=== PATIENT | female | born 1995 | race African-American/Black ===

== ENCOUNTER 2023-12-02 14:28 | Emergency (ER) | payer OTHER ==
[2023-12-02 14:43] VITALS: BP 120/61; PULSE 73; RESP 20; TEMP 98.2; BMI 31.2
[2023-12-02] MEDS ORDERED: ACETAMINOPHEN 325 MG TABLET (FP) ONE (15:24)
[2023-12-02] MEDS: ACETAMINOPHEN 325 MG TABLET (FP) PO ONE (15:25)
== END 2023-12-02 15:51 | disposition home or self-care (01) ==
LOC: FER 14:28
DX: O99.892 Other specified diseases and conditions complicating childbirth (principal); M54.50 Low back pain, unspecified; O26.892 Other specified pregnancy related conditions, second trimester; R10.9 Unspecified abdominal pain; M25.519 Pain in unspecified shoulder; Z3A.20 20 weeks gestation of pregnancy; V44.6XXA Car passenger injured in collision with heavy transport vehicle or bus in traffic accident, initial encounter; Y92.410 Unspecified street and highway as the place of occurrence of the external cause
CPT/HCPCS: 76815; 99284-25